=== PATIENT | male | born 1950 | race Caucasian/White ===

== ENCOUNTER 2016-11-05 09:57 | Day surgery (SDC) | payer MEDICARE, OTHER ==
[~2016-11-05 09:57] MED LIST: ACID CONTROL150 M2 PO; ADVAIR 25028 BLISTER INH; ALBUTEROL SULF8.5 GM IH; ALEVE220 M1 PO; ALLOPURINOL100 M1 PO; ALLOPURINOL100 MG PO; AMARYL4 M1 PO; ASPIRIN EC81 MG PO; BEVESPI AEROS10.7 GM INH; BYSTOLIC5 M1 PO; CATAPRES0.3 M1 PO; CLONIDINE PO; COLACE100 M1; COLACE100 MG PO; DEMADEX20 M1 PO; GAS RELIEF 125125 MG PO; GAS RELIEF125 M5 PO; GLUCOPHAGE500 M3 PO; GLUCOPHAGE500 MG PO; K-DUR20 ME1 PO; LASIX40 M1 PO; LASIX40 MG PO; LEVAQUIN750 MG PO; NORCO 5-325 TA1 EACH PO; NORCO 5/3251 TAB PO; PLAVIX75 M1 PO; POTASSIUM CHLO20 ME3 PO; PREDNISONE10 M1 PO; PREDNISONE10 MG PO; PROAIR HFA8.5 GM INH; PROTONIX40 M2 PO; SPIRIVA18 MC1 IH; SPIRIVA18 MCG INH; SYMBICORT 160-1 PUFF INH; SYMBICORT 160-4.6 GM INH; TRIPLE ANTIBIOT28 GM; TYLENOL325 M1 PO; TYLENOL325 M2 PO; ZOCOR40 M1 PO; [UNRECOGNIZED DRUG - OTHER] PO
[2016-11-05 10:36] LABS: HCT-HEMATOCRIT 28.9 % (36.0-53.5); HGB-HEMOGLOBIN 9.9 gm/dl (13.5-17.0); MCH (MEAN CORPUSCULAR HGB) 35.4 pg (28.0-32.0); MCHC MEAN CORPUSCULAR HGB CONC 34.3 % (32.0-36.0); MCV (MEAN CELL VOLUME) 103.2 fl (82.0-96.0); MEAN PLATELET VOLUME 10.2 cmc (9.4-12.4); NEUTROPHIL-AUTOMATED 11.6 tho/cmm (1.6-8.0); PLATELET COUNT 329 tho/cmm (150-450); RED CELL DISTRIBUTION WIDTH 18.6 % (12.4-16.4); WHITE BLOOD COUNT 13.5 tho/cmm (4.0-10.0)
[2016-11-05 10:40] LABS: INR 0.9 INR (0.9-1.1); PROTHROMBIN TIME 10.4 SECONDS (9.0-13.6)
[2016-11-05 11:32] LABS: BAND % 21 % (0-20); BAND ABSOLUTE COUNT 2.8 tho/cmm (0-2.0)
== END 2016-11-05 15:05 ==
LOC: CTSCAN 09:57 → SHSB 10:01
PROVIDERS: Internal Medicine Hematology & Oncology; Radiology Diagnostic Radiology
PROC: 07DR3ZX Extraction of Iliac Bone Marrow, Percutaneous Approach, Diagnostic (ICD-10-PCS; principal; 2016-11-05)
DX: D64.3 Other sideroblastic anemias (principal); D53.9 Nutritional anemia, unspecified; D72.828 Other elevated white blood cell count; I25.10 Atherosclerotic heart disease of native coronary artery without angina pectoris; E11.22 Type 2 diabetes mellitus with diabetic chronic kidney disease; I12.9 Hypertensive chronic kidney disease with stage 1 through stage 4 chronic kidney disease, or unspecified chronic kidney disease; N18.9 Chronic kidney disease, unspecified; J44.9 Chronic obstructive pulmonary disease, unspecified; M10.9 Gout, unspecified; K21.9 Gastro-esophageal reflux disease without esophagitis; Z79.82 Long term (current) use of aspirin; Z79.899 Other long term (current) drug therapy; Z95.1 Presence of aortocoronary bypass graft; Z98.890 Other specified postprocedural states
CPT/HCPCS: C1830; G0364; J2250; J3010; J7030

== ENCOUNTER 2016-11-06 13:19 | Inpatient (IN) | payer MEDICARE, OTHER ==
[2016-11-06 18:35] LABS: BASO % 0.5 % (0-2); HCT-HEMATOCRIT 24.5 % (36.0-53.5); HGB-HEMOGLOBIN 8.3 gm/dl (13.5-17.0); IMMATURE GRANULOCYTES ABSOLUTE 0.33 tho/cmm (0-0.03); LYMPH % 1.8 % (20-45); LYMPH ABSOLUTE COUNT 0.2 tho/cmm (0.8-4.5); MCH (MEAN CORPUSCULAR HGB) 34.9 pg (28.0-32.0); MCHC MEAN CORPUSCULAR HGB CONC 33.9 % (32.0-36.0); MCV (MEAN CELL VOLUME) 102.9 fl (82.0-96.0); MONO % 3.6 % (0-12); MONOCYTE ABSOLUTE COUNT 0.3 tho/cmm (0.0-1.2); NEUTROPHIL ABSOLUTE COUNT 7.5 tho/cmm (1.6-8.0); NEUTROPHIL-AUTOMATED 7.5 tho/cmm (1.6-8.0); NEUTROPHILS % 90.1 % (40-80); PLATELET COUNT 276 tho/cmm (150-450); PROTHROMBIN TIME 11.2 SECONDS (9.0-13.6); RED BLOOD COUNT 2.38 mil/cmm (4.40-5.70); RED CELL DISTRIBUTION WIDTH 19.2 % (12.4-16.4); WHITE BLOOD COUNT 8.4 tho/cmm (4.0-10.0)
[2016-11-06 18:50] LABS: ALB/GLOB RATIO 1.1 (0.8-2.0); ALBUMIN 3.1 g/dl (3.5-5.0); ALKALINE PHOSPHATASE 81 U/L (33-138); ALT/SGPT 42 U/L (12-78); ANION GAP 16 mmol/L (0-20); AST/SGOT 92 U/L (10-40); BILIRUBIN,TOTAL 0.7 mg/dl (0.0-1.5); BLOOD UREA NITROGEN 50 mg/dl (6-24); C-REACTIVE PROTEIN 5.2 mg/dl (0-0.9); CALCIUM 8.3 mg/dl (8.5-10.5); CARBON DIOXIDE-VENOUS 26 mmol/L (22-32); CHLORIDE 101 mmol/l (96-110); GLUCOSE 334 mg/dL (70-110); MAGNESIUM 2.2 mg/dl (1.8-2.6); POTASSIUM 4.6 mmol/L (3.7-5.1); SODIUM 138 mmol/L (135-145); eGFR VALUE FOR BLACK 35 mL/Min
[2016-11-06 18:55] LABS: TSH-THYROID STIMULATING HORM. 0.49 uIU/ml (0.40-3.80)
[2016-11-06 19:05] LABS: PROCALCITONIN 0.32 ng/ml (0.05-0.09)
[2016-11-07 04:38] LABS: PROTHROMBIN TIME 11.6 SECONDS (9.0-13.6)
[2016-11-07 04:44] LABS: BASO % 0.3 % (0-2); HGB-HEMOGLOBIN 7.6 gm/dl (13.5-17.0); IMMATURE GRANULOCYTES ABSOLUTE 0.32 tho/cmm (0-0.03); IMMATURE GRANULOCYTES PERCENT 4.1 % (0-0.3); LYMPH % 0.8 % (20-45); LYMPH ABSOLUTE COUNT 0.1 tho/cmm (0.8-4.5); MCH (MEAN CORPUSCULAR HGB) 35.5 pg (28.0-32.0); MCV (MEAN CELL VOLUME) 103.7 fl (82.0-96.0); MEAN PLATELET VOLUME 10.1 cmc (9.4-12.4); MONO % 3.1 % (0-12); MONOCYTE ABSOLUTE COUNT 0.2 tho/cmm (0.0-1.2); NEUTROPHIL ABSOLUTE COUNT 7.2 tho/cmm (1.6-8.0); NEUTROPHIL-AUTOMATED 7.2 tho/cmm (1.6-8.0); NEUTROPHILS % 91.7 % (40-80); PLATELET COUNT 265 tho/cmm (150-450); RED BLOOD COUNT 2.14 mil/cmm (4.40-5.70); RED CELL DISTRIBUTION WIDTH 19.2 % (12.4-16.4); WHITE BLOOD COUNT 7.8 tho/cmm (4.0-10.0)
[2016-11-07 04:47] LABS: ANION GAP 13 mmol/L (0-20); BLOOD UREA NITROGEN 48 mg/dl (6-24); CALCIUM 7.7 mg/dl (8.5-10.5); CARBON DIOXIDE-VENOUS 27 mmol/L (22-32); CHLORIDE 100 mmol/l (96-110); CREATININE 1.99 mg/dl (0.60-1.30); GLUCOSE 256 mg/dL (70-110); MAGNESIUM 2.1 mg/dl (1.8-2.6); POTASSIUM 4.2 mmol/L (3.7-5.1); SODIUM 136 mmol/L (135-145); eGFR VALUE FOR BLACK 39 mL/Min
[2016-11-07 04:50] LABS: HCT-HEMATOCRIT 22.2 % (36.0-53.5); MCHC MEAN CORPUSCULAR HGB CONC 34.2 % (32.0-36.0)
[2016-11-07] MEDS ORDERED: PRINIVIL5 M1 PO (11:31)
[2016-11-07] MEDS ORDERED: ALDACTONE25 M1 PO (11:32)
[2016-11-08 05:41] LABS: HGB-HEMOGLOBIN 7.9 gm/dl (13.5-17.0); MCH (MEAN CORPUSCULAR HGB) 35.4 pg (28.0-32.0); MCV (MEAN CELL VOLUME) 104.5 fl (82.0-96.0); PLATELET COUNT 300 tho/cmm (150-450); RED BLOOD COUNT 2.23 mil/cmm (4.40-5.70)
[2016-11-08 05:45] LABS: ALKALINE PHOSPHATASE 73 U/L (33-138); ALT/SGPT 59 U/L (12-78); ANION GAP 16 mmol/L (0-20); AST/SGOT 84 U/L (10-40); BILIRUBIN,TOTAL 0.9 mg/dl (0.0-1.5); BLOOD UREA NITROGEN 51 mg/dl (6-24); C-REACTIVE PROTEIN 4.1 mg/dl (0-0.9); CALCIUM 7.5 mg/dl (8.5-10.5); CARBON DIOXIDE-VENOUS 25 mmol/L (22-32); CHLORIDE 100 mmol/l (96-110); GLUCOSE 218 mg/dL (70-110); MAGNESIUM 1.9 mg/dl (1.8-2.6); POTASSIUM 3.8 mmol/L (3.7-5.1); SODIUM 137 mmol/L (135-145); eGFR VALUE FOR BLACK 35 mL/Min
[2016-11-08 05:48] LABS: HCT-HEMATOCRIT 23.3 % (36.0-53.5); MCHC MEAN CORPUSCULAR HGB CONC 33.9 % (32.0-36.0); WHITE BLOOD COUNT 14.2 tho/cmm (4.0-10.0)
[2016-11-08 06:25] LABS: PROCALCITONIN 0.21 ng/ml (0.05-0.09)
[2016-11-08 10:08] LABS: BAND % 19 % (0-20); BAND ABSOLUTE COUNT 2.7 tho/cmm (0-2.0)
[2016-11-08 10:09] LABS: WBC MORPHOLOGY TOXIC GRANULATION
[2016-11-08 16:40] LABS: IRON 109 ug/dl (49-181); IRON BINDING CAPACITY 240 ug/dl (250-450)
[2016-11-08 20:09] LABS: URINE BILIRUBIN NEGATIVE (NEG); URINE BLOOD NEGATIVE (NEG); URINE GLUCOSE (UA) NEGATIVE (NEG); URINE KETONE NEGATIVE (NEG); URINE LEUKOCYTE ESTERASE NEGATIVE (NEG); URINE NITRITE NEGATIVE (NEG); URINE PROTEIN NEGATIVE (NEG); URINE SPECIFIC GRAVITY 1.015 (1.003-1.030)
[2016-11-08 20:10] LABS: URINE APPEARANCE CLEAR; URINE COLOR YELLOW
[2016-11-08 20:19] LABS: URINE EPITHELIAL CELLS RARE /[HPF] (0-10); URINE WBC 0-2 /[HPF] (0-5)
[2016-11-08 20:20] LABS: URINE TOTAL PROTEIN-RANDOM 10.6 mg/dl (<11.8)
[2016-11-08 21:54] LABS: URINE PRT/CR RATIO 0.17 Ratio (0.0-0.20)
[2016-11-09 05:21] LABS: BLOOD UREA NITROGEN 59 mg/dl (6-24); CALCIUM 7.4 mg/dl (8.5-10.5); CARBON DIOXIDE-VENOUS 27 mmol/L (22-32); CHLORIDE 101 mmol/l (96-110); CREATININE 2.32 mg/dl (0.60-1.30); GLUCOSE 237 mg/dL (70-110); PHOSPHOROUS 4.1 mg/dl (2.5-4.9); SODIUM 137 mmol/L (135-145); eGFR VALUE FOR BLACK 32 mL/Min
[2016-11-09 05:24] LABS: ANION GAP 14 mmol/L (0-20); MAGNESIUM 2.2 mg/dl (1.8-2.6); POTASSIUM 4.6 mmol/L (3.7-5.1)
[2016-11-09 05:25] LABS: HGB-HEMOGLOBIN 7.8 gm/dl (13.5-17.0); MCH (MEAN CORPUSCULAR HGB) 35.8 pg (28.0-32.0); MEAN PLATELET VOLUME 10.4 cmc (9.4-12.4); NEUTROPHIL-AUTOMATED 12.7 tho/cmm (1.6-8.0); PLATELET COUNT 324 tho/cmm (150-450); RED BLOOD COUNT 2.18 mil/cmm (4.40-5.70); RED CELL DISTRIBUTION WIDTH 20.3 % (12.4-16.4); WHITE BLOOD COUNT 14.6 tho/cmm (4.0-10.0)
[2016-11-09 05:35] LABS: BASO % 0.5 % (0-2); BASO ABSOLUTE COUNT 0.1 tho/cmm (0.0-0.2); HCT-HEMATOCRIT 22.9 % (36.0-53.5); IMMATURE GRANULOCYTES ABSOLUTE 0.95 tho/cmm (0-0.03); IMMATURE GRANULOCYTES PERCENT 6.5 % (0-0.3); LYMPH % 2.2 % (20-45); LYMPH ABSOLUTE COUNT 0.3 tho/cmm (0.8-4.5); MCHC MEAN CORPUSCULAR HGB CONC 34.1 % (32.0-36.0); MONO % 3.6 % (0-12); MONOCYTE ABSOLUTE COUNT 0.5 tho/cmm (0.0-1.2); NEUTROPHIL ABSOLUTE COUNT 12.7 tho/cmm (1.6-8.0); NEUTROPHILS % 87.2 % (40-80)
[2016-11-10 05:22] LABS: ANION GAP 13 mmol/L (0-20); BLOOD UREA NITROGEN 59 mg/dl (6-24); CALCIUM 7.7 mg/dl (8.5-10.5); CARBON DIOXIDE-VENOUS 29 mmol/L (22-32); CHLORIDE 97 mmol/l (96-110); CREATININE 2.36 mg/dl (0.60-1.30); GLUCOSE 223 mg/dL (70-110); MAGNESIUM 2.1 mg/dl (1.8-2.6); PHOSPHOROUS 4.4 mg/dl (2.5-4.9); POTASSIUM 4.2 mmol/L (3.7-5.1); SODIUM 135 mmol/L (135-145); eGFR VALUE FOR BLACK 32 mL/Min
[2016-11-11 04:45] LABS: HCT-HEMATOCRIT 26.3 % (36.0-53.5); HGB-HEMOGLOBIN 8.9 gm/dl (13.5-17.0); MCH (MEAN CORPUSCULAR HGB) 35.7 pg (28.0-32.0); MCHC MEAN CORPUSCULAR HGB CONC 33.8 % (32.0-36.0); MCV (MEAN CELL VOLUME) 105.6 fl (82.0-96.0); MEAN PLATELET VOLUME 10.7 cmc (9.4-12.4); NEUTROPHIL-AUTOMATED 13.3 tho/cmm (1.6-8.0); PLATELET COUNT 386 tho/cmm (150-450); RED BLOOD COUNT 2.49 mil/cmm (4.40-5.70); RED CELL DISTRIBUTION WIDTH 20.2 % (12.4-16.4); WHITE BLOOD COUNT 15.9 tho/cmm (4.0-10.0)
[2016-11-11 04:50] LABS: ALB/GLOB RATIO 1.2 (0.8-2.0); ALBUMIN 3.4 g/dl (3.5-5.0); ALKALINE PHOSPHATASE 70 U/L (33-138); ALT/SGPT 55 U/L (12-78); ANION GAP 18 mmol/L (0-20); AST/SGOT 38 U/L (10-40); BILIRUBIN,TOTAL 1.2 mg/dl (0.0-1.5); BLOOD UREA NITROGEN 64 mg/dl (6-24); CARBON DIOXIDE-VENOUS 26 mmol/L (22-32); CHLORIDE 94 mmol/l (96-110); CREATININE 2.65 mg/dl (0.60-1.30); GLUCOSE 308 mg/dL (70-110); MAGNESIUM 2.2 mg/dl (1.8-2.6); PHOSPHOROUS 5.1 mg/dl (2.5-4.9); POTASSIUM 4.1 mmol/L (3.7-5.1); SODIUM 134 mmol/L (135-145); eGFR VALUE FOR BLACK 28 mL/Min
[2016-11-11 05:01] LABS: BASO % 0.9 % (0-2); BASO ABSOLUTE COUNT 0.1 tho/cmm (0.0-0.2); IMMATURE GRANULOCYTES ABSOLUTE 1.29 tho/cmm (0-0.03); IMMATURE GRANULOCYTES PERCENT 8.1 % (0-0.3); LYMPH % 0.8 % (20-45); LYMPH ABSOLUTE COUNT 0.1 tho/cmm (0.8-4.5); MONO % 6.3 % (0-12); NEUTROPHIL ABSOLUTE COUNT 13.3 tho/cmm (1.6-8.0); NEUTROPHILS % 83.9 % (40-80)
[2016-11-11 06:55] LABS: Angiotensin-Converting Enzyme 11 U/L (4-60)
[2016-11-11 15:47] LABS: URINE CREATININE-RANDOM 66 mg/dl (30-125); URINE SODIUM-RANDOM 73 mmol/L (20-110)
[2016-11-11 19:05] LABS: URINE CREATININE-RANDOM 67 mg/dl (30-125); URINE SODIUM-RANDOM 74 mmol/L (20-110)
[2016-11-12 06:42] LABS: ANION GAP 16 mmol/L (0-20); BLOOD UREA NITROGEN 60 mg/dl (6-24); CALCIUM 8.2 mg/dl (8.5-10.5); CARBON DIOXIDE-VENOUS 24 mmol/L (22-32); CHLORIDE 100 mmol/l (96-110); CREATININE 2.36 mg/dl (0.60-1.30); MAGNESIUM 2.2 mg/dl (1.8-2.6); PHOSPHOROUS 3.5 mg/dl (2.5-4.9); SODIUM 136 mmol/L (135-145); eGFR VALUE FOR BLACK 32 mL/Min
[2016-11-12 06:45] LABS: GLUCOSE 141 mg/dL (70-110)
[2016-11-13 06:17] LABS: ANION GAP 14 mmol/L (0-20); BLOOD UREA NITROGEN 55 mg/dl (6-24); CALCIUM 8.3 mg/dl (8.5-10.5); CARBON DIOXIDE-VENOUS 24 mmol/L (22-32); CHLORIDE 101 mmol/l (96-110); GLUCOSE 156 mg/dL (70-110); POTASSIUM 3.9 mmol/L (3.7-5.1); SODIUM 135 mmol/L (135-145); eGFR VALUE FOR BLACK 35 mL/Min
[2016-11-13 17:34] LABS: HCT-HEMATOCRIT 27.7 % (36.0-53.5); HGB-HEMOGLOBIN 9.5 gm/dl (13.5-17.0); MCV (MEAN CELL VOLUME) 104.5 fl (82.0-96.0)
[2016-11-14 06:20] LABS: HCT-HEMATOCRIT 27.8 % (36.0-53.5); HGB-HEMOGLOBIN 9.4 gm/dl (13.5-17.0); MCH (MEAN CORPUSCULAR HGB) 35.5 pg (28.0-32.0); MCHC MEAN CORPUSCULAR HGB CONC 33.8 % (32.0-36.0); MCV (MEAN CELL VOLUME) 104.9 fl (82.0-96.0); NEUTROPHIL-AUTOMATED 11.5 tho/cmm (1.6-8.0); PLATELET COUNT 377 tho/cmm (150-450); RED BLOOD COUNT 2.65 mil/cmm (4.40-5.70); RED CELL DISTRIBUTION WIDTH 20.4 % (12.4-16.4); WHITE BLOOD COUNT 14.7 tho/cmm (4.0-10.0)
[2016-11-14 06:21] LABS: BASO % 0.8 % (0-2); BASO ABSOLUTE COUNT 0.1 tho/cmm (0.0-0.2); EOS % 0.1 % (0-7); LYMPH % 1.3 % (20-45); LYMPH ABSOLUTE COUNT 0.2 tho/cmm (0.8-4.5); MONO % 4.7 % (0-12); MONOCYTE ABSOLUTE COUNT 0.7 tho/cmm (0.0-1.2); NEUTROPHIL ABSOLUTE COUNT 11.5 tho/cmm (1.6-8.0); NEUTROPHILS % 78.1 % (40-80)
[2016-11-14 06:30] LABS: ANION GAP 15 mmol/L (0-20); BLOOD UREA NITROGEN 53 mg/dl (6-24); CALCIUM 8.2 mg/dl (8.5-10.5); CARBON DIOXIDE-VENOUS 23 mmol/L (22-32); CHLORIDE 101 mmol/l (96-110); CREATININE 1.97 mg/dl (0.60-1.30); GLUCOSE 207 mg/dL (70-110); POTASSIUM 4.1 mmol/L (3.7-5.1); SODIUM 135 mmol/L (135-145); eGFR VALUE FOR BLACK 40 mL/Min
[2016-11-14 07:24] LABS: WBC MORPHOLOGY TOXIC GRANULATION
--- NOTE | 2016-11-15 03:47 | NUR ---
BP THIS MORNING WAS 120/65 IN RUE AND 106/58 IN LUE. PT HAD DIFFERENCE OF ~40 AT ONE POINT THIS SHIFT. WILL NOTIFY PROVIDER AND CONTINUE TO MONITOR.
[2016-11-15 05:33] LABS: ANION GAP 14 mmol/L (0-20); BLOOD UREA NITROGEN 65 mg/dl (6-24); CALCIUM 8.5 mg/dl (8.5-10.5); CARBON DIOXIDE-VENOUS 25 mmol/L (22-32); CHLORIDE 101 mmol/l (96-110); GLUCOSE 165 mg/dL (70-110); POTASSIUM 3.7 mmol/L (3.7-5.1); SODIUM 136 mmol/L (135-145); eGFR VALUE FOR BLACK 28 mL/Min
[2016-11-16 04:29] LABS: HCT-HEMATOCRIT 24.6 % (36.0-53.5); HGB-HEMOGLOBIN 8.3 gm/dl (13.5-17.0); MCH (MEAN CORPUSCULAR HGB) 35.5 pg (28.0-32.0); MCHC MEAN CORPUSCULAR HGB CONC 33.7 % (32.0-36.0); MCV (MEAN CELL VOLUME) 105.1 fl (82.0-96.0); MEAN PLATELET VOLUME 9.6 cmc (9.4-12.4); PLATELET COUNT 315 tho/cmm (150-450); RED BLOOD COUNT 2.34 mil/cmm (4.40-5.70); RED CELL DISTRIBUTION WIDTH 20.3 % (12.4-16.4)
[2016-11-16 04:36] LABS: ANION GAP 14 mmol/L (0-20); BLOOD UREA NITROGEN 58 mg/dl (6-24); CALCIUM 8.1 mg/dl (8.5-10.5); CARBON DIOXIDE-VENOUS 25 mmol/L (22-32); CHLORIDE 101 mmol/l (96-110); CREATININE 2.15 mg/dl (0.60-1.30); GLUCOSE 133 mg/dL (70-110); MAGNESIUM 2.1 mg/dl (1.8-2.6); PHOSPHOROUS 4.1 mg/dl (2.5-4.9); POTASSIUM 3.4 mmol/L (3.7-5.1); SODIUM 137 mmol/L (135-145); eGFR VALUE FOR BLACK 36 mL/Min
[2016-11-16 07:57] LABS: BAND % 14 % (0-20); BAND ABSOLUTE COUNT 1.5 tho/cmm (0-2.0)
[2016-11-17 08:51] LABS: ANION GAP 13 mmol/L (0-20); BLOOD UREA NITROGEN 44 mg/dl (6-24); CALCIUM 8.1 mg/dl (8.5-10.5); CARBON DIOXIDE-VENOUS 25 mmol/L (22-32); CHLORIDE 104 mmol/l (96-110); CREATININE 1.84 mg/dl (0.60-1.30); POTASSIUM 3.6 mmol/L (3.7-5.1); SODIUM 138 mmol/L (135-145); eGFR VALUE FOR BLACK 43 mL/Min
[2016-11-17 08:56] LABS: GLUCOSE 205 mg/dL (70-110)
[2016-11-18 05:07] LABS: ANION GAP 13 mmol/L (0-20); BLOOD UREA NITROGEN 37 mg/dl (6-24); CALCIUM 8.3 mg/dl (8.5-10.5); CARBON DIOXIDE-VENOUS 24 mmol/L (22-32); CHLORIDE 106 mmol/l (96-110); CREATININE 1.46 mg/dl (0.60-1.30); GLUCOSE 159 mg/dL (70-110); POTASSIUM 3.9 mmol/L (3.7-5.1); SODIUM 139 mmol/L (135-145); eGFR VALUE FOR BLACK 57 mL/Min
[2016-11-19 04:41] LABS: HCT-HEMATOCRIT 29.1 % (36.0-53.5); HGB-HEMOGLOBIN 9.7 gm/dl (13.5-17.0); MCH (MEAN CORPUSCULAR HGB) 34.9 pg (28.0-32.0); MCHC MEAN CORPUSCULAR HGB CONC 33.3 % (32.0-36.0); MCV (MEAN CELL VOLUME) 104.7 fl (82.0-96.0); MEAN PLATELET VOLUME 9.4 cmc (9.4-12.4); PLATELET COUNT 275 tho/cmm (150-450); RED BLOOD COUNT 2.78 mil/cmm (4.40-5.70); RED CELL DISTRIBUTION WIDTH 21.4 % (12.4-16.4); WHITE BLOOD COUNT 10.4 tho/cmm (4.0-10.0)
[2016-11-19 04:53] LABS: ANION GAP 14 mmol/L (0-20); BLOOD UREA NITROGEN 38 mg/dl (6-24); CALCIUM 8.3 mg/dl (8.5-10.5); CARBON DIOXIDE-VENOUS 24 mmol/L (22-32); CHLORIDE 105 mmol/l (96-110); CREATININE 1.53 mg/dl (0.60-1.30); GLUCOSE 130 mg/dL (70-110); SODIUM 139 mmol/L (135-145); eGFR VALUE FOR BLACK 54 mL/Min
[2016-11-19 06:20] LABS: BAND % 3 % (0-20); BAND ABSOLUTE COUNT 0.3 tho/cmm (0-2.0)
[2016-11-19] MEDS ORDERED: SPIRIVA18 MC1 INH (14:30)
[2016-11-19] MEDS ORDERED: MIDODRINE HCL2.5 M1 PO (14:31)
[2016-11-19] MEDS ORDERED: BROVANA15 MCG/22 INH (14:32)
[2016-11-19] MEDS ORDERED: RANEXA500 M1 PO (14:33)
[2016-11-19] MEDS ORDERED: BRILINTA90 M1 PO (14:33)
[2016-11-19] MEDS ORDERED: COLACE100 M1 PO (14:40)
[2016-11-19] MEDS ORDERED: PULMICORT0.5 MG/22 INH (14:40)
[2016-11-19] MEDS ORDERED: POLYETHYLENE G255 G1 PO (14:41)
[2016-11-19] MEDS ORDERED: LEVEMIR100 UNITS/ SC (14:42)
[2016-11-19] MEDS ORDERED: NOVOLOG100 UNITS/ SC (14:42)
[2016-11-19] MEDS ORDERED: GLUCAGON HCL1 MG IM (14:43)
[2016-11-19] MEDS ORDERED: VITAMIN D31000 UNI3 PO (14:44)
[2016-11-19] MEDS ORDERED: DEMADEX20 M1 PO (14:45)
== END 2016-11-19 17:10 | disposition swing bed (61) | DRG 280 ==
LOC: EDMED 13:19 → EMR2 13:50 → CCU 17:02 → PCUA 11-07 22:05
PROVIDERS: Family Medicine; Internal Medicine; Internal Medicine Cardiovascular Disease; Internal Medicine Nephrology; ADMIT Internal Medicine Interventional Cardiology
PROC: 4A023N7 Measurement of Cardiac Sampling and Pressure, Left Heart, Percutaneous Approach (ICD-10-PCS; principal; 2016-11-06)
PROC: B2111ZZ Fluoroscopy of Multiple Coronary Arteries using Low Osmolar Contrast (ICD-10-PCS; 2016-11-06)
PROC: B2121ZZ Fluoroscopy of Single Coronary Artery Bypass Graft using Low Osmolar Contrast (ICD-10-PCS; 2016-11-06)
PROC: 30233N1 Transfusion of Nonautologous Red Blood Cells into Peripheral Vein, Percutaneous Approach (ICD-10-PCS; 2016-11-16)
DX: I21.19 ST elevation (STEMI) myocardial infarction involving other coronary artery of inferior wall (principal); J18.9 Pneumonia, unspecified organism; J96.01 Acute respiratory failure with hypoxia; N17.9 Acute kidney failure, unspecified; I13.0 Hypertensive heart and chronic kidney disease with heart failure and stage 1 through stage 4 chronic kidney disease, or unspecified chronic kidney disease; I50.22 Chronic systolic (congestive) heart failure; E44.0 Moderate protein-calorie malnutrition; J44.1 Chronic obstructive pulmonary disease with (acute) exacerbation; Z68.41 Body mass index [BMI] 40.0-44.9, adult; E11.22 Type 2 diabetes mellitus with diabetic chronic kidney disease; N18.3 Chronic kidney disease, stage 3 (moderate); E11.65 Type 2 diabetes mellitus with hyperglycemia; I95.1 Orthostatic hypotension; I25.10 Atherosclerotic heart disease of native coronary artery without angina pectoris; Z95.1 Presence of aortocoronary bypass graft; E66.9 Obesity, unspecified; E78.5 Hyperlipidemia, unspecified; F17.210 Nicotine dependence, cigarettes, uncomplicated; I48.2 Chronic atrial fibrillation; I25.2 Old myocardial infarction; Z79.02 Long term (current) use of antithrombotics/antiplatelets; Z79.82 Long term (current) use of aspirin; Z79.01 Long term (current) use of anticoagulants; I25.5 Ischemic cardiomyopathy; R93.8 Abnormal findings on diagnostic imaging of other specified body structures; D63.8 Anemia in other chronic diseases classified elsewhere; E87.6 Hypokalemia; R60.0 Localized edema
CPT/HCPCS: C1769; C1887; J0610; J0885; J1120; J1644; J1815; J1940; J1956; J2250; J2270; J2405; J2920; J3010; J7030; J7040; J7512; P9016; P9047; Q9967